=== PATIENT | male | born 1960 | race Caucasian/White ===

== ENCOUNTER 2019-05-08 07:57 | Day surgery (SDC) | payer MEDICARE, MEDICAID ==
[2019-05-07 14:53] VITALS: BMI 21.1
[2019-05-08] MEDS ORDERED: PROPOFOL 200 MG/20 ML VIAL ONE (09:41)
[2019-05-08] MEDS ORDERED: Lidocaine 1% PF 5 ML VIAL ONE (09:41)
--- NOTE | 2019-05-08 17:22 | OP ---
DATE OF PROCEDURE: 05/08/2019 PROCEDURE PERFORMED: Attempted colonoscopy. PREPROCEDURE DIAGNOSIS: Fecal occult blood positive. POSTPROCEDURE DIAGNOSIS: Inadequate prep to visualize the colon. DESCRIPTION OF PROCEDURE: Written consents were obtained prior to procedure. After adequate sedation, rectal exam was performed. Endoscope was advanced into the sigmoid up into the lower descending colon. The prep quality was very suboptimal as adherent stool was seen throughout the lining. The instrument was then fully removed. The patient tolerated the procedure well. ASSESSMENT: Inadequate prep to visualize the colon. PLAN: We will re-prep for repeat colonoscopy. Job ID: [id number]
--- NOTE | 2019-05-08 17:28 | OP ---
DATE OF PROCEDURE: 05/08/2019 PROCEDURE PERFORMED: Esophagogastroduodenoscopy with biopsy. PREMEDICATION: Given by Anesthesiology Department. PREPROCEDURE DIAGNOSES: 1. History of long segment Brooks's. 2. Positive occult blood in stool. POSTPROCEDURE DIAGNOSES: 1. 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 2. Hiatal hernia. 3. Otherwise normal upper endoscopy. DESCRIPTION OF PROCEDURE: Written consents were obtained prior to procedure. After adequate sedation, the forward-viewing endoscope was advanced down to the stomach under direct vision to the second portion of duodenum. In the second portion, the bulb appeared normal. The pylorus was patent. The gastric antrum, body, fundus, and cardia appeared normal. Retroflexion showed a 4 cm hiatal hernia. Gastric fold narrowing is located approximately 29 cm. GE junction is approximately 30 cm. There is salmon-colored lining extending all the way up to 23 cm from the incisors. No mucosal lesion or abnormality was seen. Four quadrant biopsies were obtained every 2 cm starting at 30 cm. A total of four bottles were sent. The upper esophagus appeared normal. The patient tolerated the procedure well. ASSESSMENT: 1. Long segment Brooks's, 7 cm with no visible abnormality. 2. Hiatal hernia. 3. Otherwise normal upper endoscopy. PLAN: 1. Await biopsy results. 2. Continue with esomeprazole 40 mg q.a.m. Job ID: [id number]
== END 2019-05-08 11:25 | disposition home or self-care (01) ==
LOC: SDC 07:57
PROVIDERS: ATTEND Internal Medicine Gastroenterology
PROC: 0DB58ZX Excision of Esophagus, Via Natural or Artificial Opening Endoscopic, Diagnostic (ICD-10-PCS; principal; 2019-05-08)
PROC: 0DJD8ZZ Inspection of Lower Intestinal Tract, Via Natural or Artificial Opening Endoscopic (ICD-10-PCS; 2019-05-08)
DX: K22.70 Barrett's esophagus without dysplasia (principal); R19.5 Other fecal abnormalities; K44.9 Diaphragmatic hernia without obstruction or gangrene; K21.9 Gastro-esophageal reflux disease without esophagitis; Z79.899 Other long term (current) drug therapy; Z88.1 Allergy status to other antibiotic agents
CPT/HCPCS: 88305; 88312; 88313; J2001; J2704

== ENCOUNTER 2021-03-26 09:44 | Outpatient (CLI) | payer MEDICARE, MEDICAID ==
[2021-03-26 18:12] LABS: SARS-CoV-2 PCR by NAA Not Detected (NotDetected)
== END 2021-03-26 09:45 | disposition home or self-care (01) ==
LOC: LABBT 09:44
PROVIDERS: ATTEND Internal Medicine Gastroenterology
DX: Z01.812 Encounter for preprocedural laboratory examination (principal); K22.70 Barrett's esophagus without dysplasia; Z20.822 Contact with and (suspected) exposure to COVID-19
CPT/HCPCS: U0003; U0005

== ENCOUNTER 2021-03-31 06:09 | Day surgery (SDC) | payer MEDICARE, MEDICAID ==
[2021-03-30 10:31] VITALS: BMI 21.4
[2021-03-31] MEDS ORDERED: Fentanyl 100 MCG/2 ML VIAL ONE (07:21)
[2021-03-31] MEDS ORDERED: PROPOFOL 200 MG/20 ML VIAL ONE (07:41)
== END 2021-03-31 09:00 | disposition home or self-care (01) ==
LOC: SDC 06:09
PROVIDERS: ATTEND Internal Medicine Gastroenterology
PROC: 0DB58ZX Excision of Esophagus, Via Natural or Artificial Opening Endoscopic, Diagnostic (ICD-10-PCS; principal; 2021-03-31)
DX: K22.70 Barrett's esophagus without dysplasia (principal); K21.9 Gastro-esophageal reflux disease without esophagitis; K44.9 Diaphragmatic hernia without obstruction or gangrene; Z79.899 Other long term (current) drug therapy; Z88.1 Allergy status to other antibiotic agents
CPT/HCPCS: 88305; J3010

== ENCOUNTER 2021-11-04 08:05 | Day surgery (SDC) | payer MEDICARE, MEDICAID ==
[2021-11-03 09:41] VITALS: BMI 21.9
[2021-11-04] MEDS ORDERED: Ketorolac Tromethamine 30 MG/ML VIAL ONE (08:52)
[2021-11-04] MEDS ORDERED: Lidocaine 1% w/Epinephrine 1:100K 20 ML VIAL ONE (10:14)
[2021-11-04] MEDS ORDERED: Bupivacaine 0.25% 10 ML VIAL ONE (10:14)
[2021-11-04] MEDS ORDERED: HYDROmorphone 2 MG/ML VIAL ONE (10:23)
[2021-11-04] MEDS ORDERED: fentaNYL Citrate/PF 100 MCG/2 ML SYRINGE ONE (10:23)
[2021-11-04] MEDS ORDERED: Levofloxacin 500 mg/D5W 100 ml Premix Bag ONE (10:27)
[2021-11-04] MEDS ORDERED: Lidocaine 1% PF 5 ML VIAL ONE (10:38)
[2021-11-04] MEDS ORDERED: Dexamethasone 20 MG/5 ML VIAL ONE (10:38)
[2021-11-04] MEDS ORDERED: PROPOFOL 200 MG/20 ML VIAL ONE (10:38)
[2021-11-04] MEDS ORDERED: Esmolol 100 MG/10 ML VIAL ONE (10:38)
[2021-11-04] MEDS ORDERED: Glycopyrrolate 0.2 MG/ML 5 ML SYRINGE ONE (10:38)
[2021-11-04] MEDS ORDERED: Succinylcholine 200 MG/10 ml SYRINGE FS ONE (10:38)
[2021-11-04] MEDS ORDERED: Rocuronium Bromide 10 MG/ML (10ML VIAL) ONE (10:38)
[2021-11-04] MEDS ORDERED: Ondansetron PF 4 MG/2 ML Vial ONE (10:38)
[2021-11-04] MEDS ORDERED: Ondansetron HCl/PF 4 MG/2 ML Vial IVP PRN (12:12)
[2021-11-04] MEDS ORDERED: Promethazine HCl 25 MG/ML VIAL IVPB PRN (12:12)
[2021-11-04] MEDS ORDERED: Promethazine HCl 25 MG/ML VIAL IM PRN (12:12)
== END 2021-11-04 14:30 | disposition home or self-care (01) ==
LOC: SDC 08:05
PROVIDERS: ATTEND Specialist
PROC: 0FT44ZZ Resection of Gallbladder, Percutaneous Endoscopic Approach (ICD-10-PCS; principal; 2021-11-04)
DX: K80.10 Calculus of gallbladder with chronic cholecystitis without obstruction (principal); K82.1 Hydrops of gallbladder; K66.0 Peritoneal adhesions (postprocedural) (postinfection); F73 Profound intellectual disabilities; K21.9 Gastro-esophageal reflux disease without esophagitis; G80.9 Cerebral palsy, unspecified; Z79.899 Other long term (current) drug therapy; Z88.1 Allergy status to other antibiotic agents; Z99.3 Dependence on wheelchair
CPT/HCPCS: 47562; 93005; C1713 ×2; 88304; 93010; J1100; J1170; J1885; J1956; J2405; J2704; S0020

== ENCOUNTER 2023-04-05 05:43 | Day surgery (SDC) | payer MEDICARE, MEDICAID ==
[2023-04-04 08:46] VITALS: BMI 22.9
[2023-04-05] MEDS ORDERED: PROPOFOL 200 MG/20 ML VIAL ONE (07:45)
== END 2023-04-05 09:18 | disposition short-term general hospital (02) ==
LOC: SDC 05:43
PROVIDERS: ATTEND Internal Medicine Gastroenterology
PROC: 0DB38ZX Excision of Lower Esophagus, Via Natural or Artificial Opening Endoscopic, Diagnostic (ICD-10-PCS; principal; 2023-04-05)
PROC: 0DB18ZX Excision of Upper Esophagus, Via Natural or Artificial Opening Endoscopic, Diagnostic (ICD-10-PCS; 2023-04-05)
PROC: 0DB28ZX Excision of Middle Esophagus, Via Natural or Artificial Opening Endoscopic, Diagnostic (ICD-10-PCS; 2023-04-05)
DX: K22.70 Barrett's esophagus without dysplasia (principal); K21.9 Gastro-esophageal reflux disease without esophagitis; K44.9 Diaphragmatic hernia without obstruction or gangrene; Z88.1 Allergy status to other antibiotic agents; Z90.49 Acquired absence of other specified parts of digestive tract; Z79.899 Other long term (current) drug therapy
CPT/HCPCS: 88305; J2704